=== PATIENT | female | born 1975 | race Caucasian/White ===

== ENCOUNTER → 2023-07-29 13:15 | Outpatient (REF) | payer OTHER, SELFPAY | LOC: CLAB 13:15 | PROVIDERS: ATTENDING PHYSICIAN Obstetrics & Gynecology Gynecology | DX: N84.0 Polyp of corpus uteri (principal); N92.4 Excessive bleeding in the premenopausal period | CPT/HCPCS: 88305 ==

== ENCOUNTER → 2023-08-24 09:43 | Outpatient (REF) | payer OTHER, SELFPAY | LOC: WDC 09:43 | PROVIDERS: ATTENDING PHYSICIAN Obstetrics & Gynecology Gynecology; FAMILY PHYSICIAN Physician Assistant Medical | DX: N63.10 Unspecified lump in the right breast, unspecified quadrant (principal); N63.31 Unspecified lump in axillary tail of the right breast | CPT/HCPCS: 76642; 77062; 77066 ==

== ENCOUNTER → 2023-12-26 07:59 | Outpatient (REF) | payer OTHER, SELFPAY | LOC: WDC 07:59 | PROVIDERS: ATTENDING PHYSICIAN Obstetrics & Gynecology Gynecology; FAMILY PHYSICIAN Physician Assistant Medical | DX: R92.2 Inconclusive mammogram (principal); Z80.3 Family history of malignant neoplasm of breast | CPT/HCPCS: 76641 ==

== ENCOUNTER → 2024-06-07 08:26 | Outpatient (REF) | payer OTHER, SELFPAY | LOC: WDC 08:26 | PROVIDERS: ATTENDING PHYSICIAN Obstetrics & Gynecology Gynecology; FAMILY PHYSICIAN Physician Assistant Medical | DX: R92.8 Other abnormal and inconclusive findings on diagnostic imaging of breast (principal) | CPT/HCPCS: 76642 ==

== ENCOUNTER 2024-09-25 04:33 | Observation (INO) | payer OTHER, SELFPAY ==
[2024-09-24 23:28] VITALS: BP 146/87
[2024-09-25 00:05] LABS: % Basophils 0.6 % (0-2); % Eosinophils 2.9 % (0-6); % Immature Granulocytes 0.3 % (0-0.5); % Lymphocytes 22.9 % (20.5-51.1); % Monocytes 8.7 % (1.7-9.3); % Neutrophils 64.6 % (42.2-75.2); Absolute Eosinophils 0.2 10^3/uL (0-0.7); Absolute Lymphocytes 1.7 10^3/uL (1.2-3.4); Absolute Monocytes 0.6 10^3/uL (0.1-0.6); Absolute Neutrophils 4.7 10^3/uL (1.4-6.5); HCG, Serum Qualitative Screen Negative; Hematocrit 38.8 % (37.0-47.0); Hemoglobin 13.8 g/dL (12.0-16.0); Mean Corp Hgb Conc. 35.6 g/dL (33.0-37.0); Mean Corpuscular Hgb 30.7 pg (27.0-31.0); Mean Corpuscular Volume 86.4 fL (81.0-99.0); Mean Platelet Volume 10.3 fL (7.4-10.4); Nucleated Red Blood Cells % 0 %; Platelet Count 185 10^3/uL (130-400); Red Blood Cell Count 4.49 10^6/uL (4.20-5.40); White Blood Cell Count 7.2 10^3/uL (4.8-10.8)
[2024-09-25 00:09] LABS: ALT (SGPT) 15 U/L (0-35); AST (SGOT) 20 U/L (14-36); Albumin 4.2 g/dl (3.5-5.0); Alkaline Phosphatase 72 U/L (38-126); Blood Urea Nitrogen 8 mg/dl (7-17); Calcium 9.5 mg/dl (8.4-10.2); Carbon Dioxide 20 mmol/L (22-30); Chloride 107 mmol/L (98-107); Glucose 119 mg/dl (70-99); Potassium 3.1 mmol/L (3.5-5.1); Sodium 137 mmol/L (135-145); Total Bilirubin 0.7 mg/dl (0.2-1.3); Total Protein 6.7 g/dl (6.3-8.2); eGFR > 60.00
[2024-09-25 00:20] LABS: Troponin I < 0.012 ng/ml
[2024-09-25 01:29] VITALS: BMI 25.3
[2024-09-25 02:17] LABS: D-Dimer 0.44 ug/mlFEU (0.00-0.50)
[2024-09-25 02:29] LABS: Troponin I 0.029 ng/ml
--- NOTE | 2024-09-25 03:21 | ED.GENMED ---
History of Present Illness
General
Chief Complaint: Anxiety
Source: patient
Exam Limitations: none
Time Seen by Provider: 09/25/24 01:30
Nursing documentation reviewed up to this point in time: agreed with
History of Present Illness
History of Present Illness:
This is a 49-year-old woman with history of hyperlipidemia, had been started on Crestor in June but discontinued this due to complaints of posterior neck pain that has been an ongoing issue for a few months. She admits that neck pain has not
improved with discontinuing Crestor and more recently over the past few weeks she has had intermittent left-sided chest pain accompanied with shortness of breath and feelings of anxiety. Chest pain episodes are worse with activity, accompanied with
shortness of breath and feeling somewhat panicked and generally occur perhaps twice a week over the past few weeks, worse tonight accompanied with circumoral paresthesia, tingling of her fingers and toes and carpopedal spasm.
She arrives via EMS. 324 mg chewable aspirin given prehospital.
Feeling improved with resolution of chest pain and shortness of breath, continues with intermittent anxiety.
No recent travel. Denies leg pain or swelling.
Past History
Past History
ED Past Medical History: Hypercholesterolemia
ED Past Surgical History: Gynecological
Social History
Tobacco: Non-smoker
Alcohol: None
Drug: None
Personal:
Living: with family
Employment: Employed (Pharmacist)
Family History
Family History: Cancer (Family history of breast cancer)
Phy Exam
Physical Exam
Physical Exam:
GENERAL: 49-year-old woman appears her stated age, awake and alert, mildly anxious, intermittently mildly hyperventilating. Multiple family members present.
EYE: anicteric
NECK: Supple, nontender, no meningismus, no significant adenopathy.
ENT: oral mucosa is moist. No rhinorrhea.
CARDIAC: Regular rate and rhythm. no murmur. No palpable chest wall tenderness.
LUNGS: Clear breath sounds bilaterally, no acute respiratory distress, no wheezes/rales/rhonchi
ABDOMEN: Soft, nondistended, without focal tenderness, no r/g, no cvat. normoactive BS.
NEUROLOGICAL: Alert and oriented x3, no focal neuro deficits.
SKIN: Warm and dry, normal color, skin intact. No rash.
MUSCULOSKELETAL: No C/C/E. peripheral pulses are full and equal b/l. No palpable tenderness.
PSYCH: Mildly anxious. Easily communicative.
Scores
Heart Score for Chest Pain Patients
STEMI patient?: No
History: Slightly or Non-Suspicious
ECG: Normal
Age: >45 - <65 years
Risk Factors: 1 or 2 Risk Factors
Troponin: >1 - <3 x Normal Limit
Heart Score for Chest Pain Patients: 3
Heart Score Risk: 2.5% MACE over next 6 weeks
Course
Orders/Labs/Results
Orders:
Orders
09/24/24 23:35
EKG [Electrocardiogram (*1)] Urgent
Reason for Study: Chest Pain
EKG- Treatment ONCE
09/24/24 23:36
Test Result ONCE
09/24/24 23:47
Complete Blood Count/With Diff Urgent
Comprehensive Metabolic Panel Urgent
HCG, Serum Qualitative Screen Urgent
Troponin I Urgent
09/25/24 01:47
Lorazepam [Ativan] 0.5 mg IV NOW STA
09/25/24 01:59
D-Dimer Urgent
Troponin I Urgent
09/25/24 03:06
CR Chest - 2 Views Urgent
Comment:
Reason For Exam: intmittent CP with SOB
09/25/24 04:13
Lorazepam [Ativan] 0.5 mg PO NOW STA
09/25/24 04:16
Potassium Chloride [KCl] 40 meq PO NOW STA
09/25/24 04:22
Admit/Transfer Patient As Directed
Co-Sign Provider:
Level of Care: Observation services
Assign to:: Telemetry
Physician / Group: hospitalist
Diagnosis: atypical chest pain
Reason for Telemetry: Chest Pain syndromes
Date to Stop Telemetry: 09/27/24
Time to Stop Telemetry: 11:00
PRN Pain Medication Management As Directed
May give lesser potent ordered pain med per pt: Yes
preference::
Protocol:: Medication orders for pain may be administered in a
manner that supports deferring to patient preference
when the pt is:
- Requesting an ordered lesser potent pain medication.
Least to most potent pain medications are defined
as: acetaminophen < NSAID < tramadol < opioids
(morphine, oxycodone, hydromorphone).
- Requesting a lesser dose of the same medication IF
ORDERED.
- Requesting a less intrusive route of administration
if both routes are prescribed by the provider (PO <
IV).
09/25/24 04:23
Code Status As Directed
Resuscitation Status: Full Code
09/27/24 11:00
DC Protocol for Telemetry ONCE
Abnormal Lab Results
09/24/24
23:47
Potassium 3.1 L mmol/L
(3.5-5.1)
Carbon Dioxide 20 L mmol/L
(22-30)
Glucose 119 H mg/dl
(70-99)
09/24/24 23:47
09/24/24 23:47
Vital Signs
Initial and Last Documented VS:
Initial Vital Signs
Temp Pulse Resp BP Pulse Ox
97.7 F 91 18 146/87 100
09/24/24 23:28 09/24/24 23:28 09/24/24 23:28 09/24/24 23:28 09/24/24 23:28
Last Documented Vital Signs
Temp Pulse Resp BP Pulse Ox
97.7 F 66 13 137/83 100
09/24/24 23:28 09/25/24 04:00 09/25/24 04:00 09/25/24 03:23 09/25/24 04:00
MDM/Problems Addressed
Differential Diagnosis Includes:
Concern for hyperventilation syndrome, ACS, musculoskeletal chest wall pain, GERD, pleurisy, less likely PE, pneumonia.
Thus far labs are unremarkable. Troponin is negative.
EKG is unremarkable.
Will check D-dimer and plan to repeat troponin.
Patient initially appears comfortable but with discussion of plan of care, discussion of further laboratory studies, D-dimer she becomes anxious, mildly hyperventilating thus will give an IV dose of Ativan.
*Radiology
Radiology exam reviewed: preliminary read by ED provider (Chest x-ray is unremarkable. Unchanged from previous.)
*Pulse Oximetry
Patient hypoxic: no
*EKG
Interpreted by ED Provider?: Yes
Interpretation: normal
Comparison EKG: no comparison EKG present
Rate: normal
Rhythm: sinus
Fraziers Bottom: normal axis
Interval: normal interval
QRS Pattern: normal QRS
Ischemia: no ischemia
*Director Of Regional Sales Interpretation
Rate: normal
Interpretation: normal
Rhythm: sinus
*Critical Care Note
Total Time (30-74mins, 75-104mins- exclusive of procedures): Not Applicable
Update Note
Update Note:
03:30
Patient resting comfortably after Ativan.
No further chest pain or shortness of breath.
D-dimer is normal.
Troponin has trended up from < 0.012 to 0.029
As troponin has more than doubled, will continue to observe, plan to repeat troponin and will admit to hospital service. Plan for cardiology consult.
ED Attending Note
-
Portions of this chart may have been created with voice recognition software.� Occasional wrong word or��sound alike� substitutions may have occurred due to the inherent limitations of voice recognition software.
Discharge Plan
Departure
Patient Disposition: Admit
Date of Disposition: 09/25/24
Time of Disposition: 03:30
Admit to: Telemetry
Admit to doctor: Nichelle
Presentation/result/management discussed w/ accepting MD/DO: Hospitalist
Discharge Problem:
chest pain r/o ACS
Interventions
Interventions:
*Risk Screen - Suicide Last Done: 09/24/24 23:28
*General Assessment Last Done: 09/24/24 23:28
*Neglect/Abuse Screening Last Done: 09/24/24 23:28
*ED COVID-19 Vaccine History Last Done: 09/24/24 23:28
ED-Psychological Assessment Last Done: 09/25/24 01:29
[2024-09-25 03:23] VITALS: BP 137/83
--- NOTE | 2024-09-25 04:14 | HPS.HSE ---
Family Physician
-
Family Physician: [place]
Chief Complaint
-
Chest pain
History of Present Illness
This is a 49-year-old female with past medical history of iron deficiency anemia presented to the emergency department with about 2-week history of chest pain.
Patient reports intermittent episodes of left-sided chest pain just below her clavicle that lasted few minutes and then resolves only to come back hours later. She says did not particularly associated with any activity. She feels that when she
gets these episodes she feels some shortness of breath as though she cannot take a deep breath. She reports that this episode usually begin with a slight irritation and then she develops heart palpitations. She says when she gets the symptoms
states often associated with tingling in her fingertips as well as tremors in her hands.
Patient reports that she has had a history of anxiety and panic episodes in the past and she says that she feels that she has been having them more frequently over the last few weeks. She has a family history that is positive for CAD in the mother
who had an WI at the age of around 65. No other known family history. She denies any prior cardiac testing. She reports history of for hyperlipidemia for which she was taking rosuvastatin and then she stopped due to intermittent headaches. She
denies any history of hypertension. She denies any history of diabetes.
In the emergency department she was afebrile, blood pressure was 140/80 with a pulse of 80 and she was satting 100% on room air. Initial troponin was 0.012 ECG shows a normal sinus rhythm at a rate of [address] or T wave changes. CBC was
completely normal. Electrolytes notable for a potassium of 3.1 but otherwise unremarkable.
Chest x-ray was clear.
Medical History
Past Medical History
Past Medical History: Reports Hypercholesterolemia and Other (Anemia)
Past Surgical History: Reports None
Social History
Tobacco: Non-smoker
Alcohol: Occasional
Drug: None
Living: With Family
Family History
Family History: Not pertinent
Allergies / Home Medications
Allergies reflects when Allergies were last updated in [facility] [employer].
Home Medications with original date entered in [facility] [facility]
Allergy/Medication List:
Allergies
Allergy/AdvReac Type Severity Reaction Status Date / Time
tetracaine [From Altacaine] Allergy Mild Shortness Verified 09/24/24 23:28
of Breath
Home Medications
No Meds [No Current Medications] 09/25/24
Review of Systems
-
History Source: Patient
Constitutional: Reports No Symptoms
EENT: Reports No Symptoms
Respiratory: Reports No Symptoms
Cardiac: Reports Chest Pain and Palpitations
Abdomen/GI: Reports No Symptoms
: Reports No Symptoms
Musculoskeletal: Reports No Symptoms
Skin: Reports No Symptoms
Neurological: Reports No Symptoms
Endocrine: Reports No Symptoms
Hematologic/Lymphatic: Reports No Symptoms
Psych: Reports No Symptoms
Physical Exam
Vital Signs
Vital Signs
Temp Pulse Resp BP Pulse Ox
97.7 F 66 13 137/83 100
09/24/24 23:28 09/25/24 04:00 09/25/24 04:00 09/25/24 03:23 09/25/24 04:00
Physical Exam
General: Well Developed, Well Nourished, No Apparent Distress and Comfortable
HEENT: NormoCephalic, Anicteric, Moist mucous membranes and Atraumatic
Respiratory: Clear
Cardiac: S1/S2 and Regular Rhythm
Breast: Deferred by me
GI: Soft, Non Tender, Non Distended and Normal Bowel Sounds
Rectal: Deferred by Provider
Genito-urinary: Deferred by me
Musculoskeletal: No Clubbing, No Cyanosis and No Edema
Skin: Warm
Neuro: AO x 3
Hematologic/Lymphatic: No Lymphadenopathy
Psych: Anxious
Laboratory Results
-
09/24/24 23:47
09/24/24 23:47
Laboratory Results
Total Bilirubin 0.7 mg/dl (0.2-1.3) 09/24/24 23:47
AST 20 U/L (14-36) 09/24/24 23:47
ALT 15 U/L (0-35) 09/24/24 23:47
Alkaline Phosphatase 72 U/L (38-126) 09/24/24 23:47
Troponin I 0.029 ng/ml D 09/25/24 01:59
Data Reviewed
-
Diagnostic Radiology: Image Personally Visualized and interpreted
Medical Tests (Nuc Med, Echo, EKG etc): Image Personally Visualized and interpreted
Lab Data: Labs Reviewed by me
Old Records: Reviewed
Impression/Plan
-
IMPRESSION:
49-year-old with past medical history significant for anemia status post treatment, hyperlipidemia not currently treated, anxiety and a family history of CAD in mother and 60s presents to the emergency department with 2 weeks of intermittent chest
discomfort lasting about 2 to 3 minutes before resolving and associated with some shortness of breath bilateral finger tingling and hand tremors. While I was with the patient she was having such episode. She describes it as anxiety and a panic
episode. She does appear to be having episodic anxiety attacks. She seems to have anxiety with taking medications. Family members are known to help calm her down.
PLAN:
Atypical chest pain -suspect anxiety episode, ECG is nonischemic, initial troponin was negative. There was a change on repeat troponin from 0.012-0.029 and she has a positive family history which merits a rule out WI.
-Admit to telemetry observation
-Repeat troponin in 3 hours
-If troponin negative patient does not need further inpatient evaluation, she can get outpatient stress test
-Check lipid panel with repeat troponin, check A1c
-Start lorazepam as needed for panic attacks
-Consider outpatient SSRI for generalized anxiety disorder
DVT prophylaxis with SCDs for now
CODE STATUS-Full code
[2024-09-25] MEDS: ATIVAN 0.5 MG PO (04:34)
[2024-09-25] MEDS: KCL 40 MEQ PO (04:34)
[2024-09-25 06:00] VITALS: BMI 24.5
[2024-09-25 07:16] LABS: Blood Urea Nitrogen 7 mg/dl (7-17); Carbon Dioxide 21 mmol/L (22-30); Chloride 112 mmol/L (98-107); Estimated Creatinine Clearance 98 ml/min; Glucose 120 mg/dl (70-99); Magnesium 2.1 mg/dl (1.6-2.3); Potassium 4.3 mmol/L (3.5-5.1); Sodium 141 mmol/L (135-145); eGFR > 60.00
[2024-09-25 07:44] VITALS: BP 123/75
[2024-09-25 07:45] VITALS: BP 123/75
[2024-09-25 08:16] LABS: HDL Cholesterol 61 mg/dl; LDL Cholesterol, Calculated 177 mg/dl; Total Cholesterol 268 mg/dl (50-199); Triglyceride 154 mg/dl (10-149); Very Low Density Lipoprotein 30 mg/dl (0-30)
[2024-09-25 08:28] LABS: Troponin I 0.017 ng/ml
[2024-09-25 09:44] LABS: Glycohemoglobin (HgbA1c) 5.2 % (4.0-5.6)
[2024-09-25 10:03] VITALS: BP 165/103
--- NOTE | 2024-09-25 11:09 | CM ---
CM met with pt bedside
Pt resides with her son 16 y/o and spouse in a 2SH with 0STE through garage
Full flight to 2nd floor
Pt is indep with her ADLs, denies use of DMEs
PCP- [place]
Rx- [facility] [address] [facility] [facility] [address]
Pt is OBS- OBS form completed
Copy provided to pt and add'l copy placed on ED chart
Discharge Disposition- home, no needs anticipated, plans to drive self home
--- NOTE | 2024-09-25 11:12 | CON.CAR ---
Addendum entered and electronically signed by Xu Dalton MD 09/25/24 14:35:
I saw and examined the patient.
The BLOOD BANK LABORATORY TECHNICIAN's note was reviewed and I agree with the note.
Comment: 49 yo female who is a former smoker quitting last year and has a family history of premature CAD in her mother (WA in early 60s) presents with cp that has no pattern, is stabbing at times and pressure at times. No plueritic nature, not
positional, is not brought on by exercising on the treadmill. Labs not troponin inconsistent with WA. ECG NSR. Exam is normal. Echo was done without any acute abnormality. At this point differential still includes GI, somatic, anxiety and least
likely CAD. OK to send home and our office will call to schedule ETT. If normal f/w with pcp. Otherwise as below.
Original Note:
Consultation
Consultation Request
Date/Time Consultation Requested: 09/25/2024 10:00
Date/Time Consultation Performed: 09/25/2024 11:10
Requesting Provider: Dr. Powell
Performing Provider: KATALINA Garcia for Dr. Dalton
Reason for Consultation: Atypical chest pain
Medical History
-
Chief Complaint: Chest pain
History of Present Illness:
Yennifer Peck is a 49-year-old female with hypercholesterolemia and iron deficiency anemia who presented to the emergency department with a chief complaint of chest pain. Her chest pain started at least 2 weeks ago. It comes and goes. It can
happen at rest or at exertion. She describes it as a mild intensity discomfort in her left anterior chest. Sometimes it is stabbing and sometimes it is heaviness. It will spontaneously resolve within minutes. She endorses no association of
nausea, vomiting, dizziness, nor diaphoresis. She has been just trying to sit down and relax when it occurs. When it is happening she feels like she cannot take a deep breath. She reports that these situations with chest pain are occurring more
frequently than they did 2 weeks ago. She is unsure if it is anxiety or panic attacks. She has had several troponins drawn in the last 12 hours, highest 0.029. Her EKG is stable. Her mother had an WA in her 60s. She is not currently having any
shortness of breath or chest pain. She has also been experiencing worsening posterior headaches. She initially plan a saw her PCP about them today.
Past Medical History
Past Medical History: Hypercholesterolemia and Other (AI)
Past Surgical History: Gynecological
Social History
Tobacco: Non-Smoker
Personal:
Living: With Family
Employment: Employed (Pharmacist)
Family History
Family History: CAD (Mother with WA at age 65)
Allergies / Home Medications
Allergy/AdvReac Type Severity Reaction Status Date / Time
tetracaine [From Altacaine] Allergy Mild Shortness Verified 09/24/24 23:28
of Breath
�Medication �Instructions �Recorded �Confirmed �Type
ferrous sulfate 325 mg (65 mg 325 mg PO HS 09/25/24 09/25/24 History
iron) tablet
Review of Systems
-
History Source: Patient
All other systems: Negative unless noted
Constitutional: No Symptoms
EENT: No Symptoms
Respiratory: No Symptoms
Cardiac: No Symptoms
Abdomen/GI: No Symptoms
: No Symptoms
Musculoskeletal: No Symptoms
Skin: No Symptoms
Neurological: No Symptoms
Endocrine: No Symptoms
Hematologic/Lymphatic: No Symptoms
Physical Exam
Vital Signs
Temp Pulse Resp BP Pulse Ox
98.5 F 86 20 123/75 98
09/25/24 07:45 09/25/24 07:45 09/25/24 07:45 09/25/24 07:45 09/25/24 07:45
Lab Results
09/24/24 23:47
09/25/24 06:47
Troponin I 0.017 ng/ml D 09/25/24 07:51
Impression / Plan
-
I/P: 49F with hypercholesterolemia and iron deficiency anemia who presented to the emergency department with a chief complaint of chest pain.
Chest pain
-Atypical with random episodes that are non exertional
-Peak troponin 0.029
-EKG stable
-Echocardiogram today
Dyslipidemia
-TC 268, LDL 177, HDL 61, TG 154
-She was given rosuvastatin in June but discontinued it due to neck pain & headache, this did not improve with discontinuation of rosuvastatin
FH CAD, mother with WA in her 60s
AI, blood count stable, on iron supplementation
Data Reviewed
-
EKG: Report Reviewed by me
Radiology: Report Reviewed by me
Labs: Labs Reviewed by me
[2024-09-25 11:49] VITALS: BP 132/88
[2024-09-25 12:00] LABS: Troponin I 0.014 ng/ml
--- NOTE | 2024-09-25 15:08 | W.PN.HOSP.TC ---
Today's Communication/Plan
-
Discharge home today
Assessment / Plan
Assessment / Plan
Assessment/plan
Atypical chest pain -suspect anxiety episode, ECG is nonischemic, initial troponin was negative. There was a change on repeat troponin from 0.012-0.029 and she has a positive family history which merits a rule out CA.
-Admit to telemetry observation
-Repeat troponin in 3 hours
-If troponin negative patient does not need further inpatient evaluation, she can get outpatient stress test
-Check lipid panel with repeat troponin, check A1c
-Start lorazepam as needed for panic attacks
-Consider outpatient SSRI for generalized anxiety disorder
09/25
Seen by cardiology.
Echocardiogram done came back shows:
Normal biventricular size and systolic function without regional wall motion
abnormality.
No significant valvular disease.
No prior study available for comparison.
Started Vistaril.
Discharge home today and follow-up as outpatient with cardio
Hypercholesterolemia.
Advised to resume Crestor
CODE STATUS: Full code
DVT prophylaxis:SCD
Diet: Regular diet
Total time spent on today's encounter was 40 minutes which included time spent in counseling the patient/family regarding diagnosis and treatment plan as listed above, goals of care, and symptom management. Case was discussed with nursing staff,
specialists, and care coordinators/case management. All labs and imaging personally reviewed by me. Remainder the time spent in detailed review of previous records, lab data, imaging, and other medical provider documentation.
Anticipated Discharge: Today
Subjective/Interval History
-
Date of Service: September 25, 2024
Patient seen and examined at bedside, denies any chest pain or shortness of breath, no abdominal pain, no nausea, no vomiting, no diarrhea or constipation.
Seen by cardiology and echocardiogram came back unremarkable, will be discharged home.
Objective Data
-
Labs:
Laboratory Results
09/25/24
06:47
Sodium 141
Potassium 4.3 D
Chloride 112 H
Carbon Dioxide 21 L
BUN 7
Creatinine 0.5 L
Glucose 120 H
Calcium 9.0
Vital Signs:
Vital Signs
Temp Pulse Resp BP Pulse Ox
98.3 F 79 16 132/88 100
09/25/24 11:49 09/25/24 11:49 09/25/24 11:49 09/25/24 11:49 09/25/24 11:49
Physical Exam
-
General: Well Developed, Well Nourished, No Apparent Distress and Comfortable
HEENT: Normocephalic, Atraumatic, Moist Mucous Membranes, No Ptosis, PERRLA and Nose Appears Normal
Respiratory: Clear to Auscultation and Non Labored Respirations
Cardiac: Regular Rhythm and S1/S2
Breast: Deferred by me
GI: Soft, Nontender, Nondistended and Normal Bowel Sounds
Genito-urinary: No Costovertebral Tender
Musculoskeletal: No Clubbing, No Cyanosis and No Edema
Skin: Warm
Neuro: Awake, Alert, Oriented, AO x 3 and No Motor Deficits
Psych: Calm
Data Reviewed
-
Diagnostic Radiology: Image personally visualized and interpreted and Report Reviewed by me
CT Scan: Image personally visualized and interpreted and Report Reviewed by me
Ultrasound: Image personally visualized and interpreted and Report Reviewed by me
MRI: Image personally visualized and interpreted and Report Reviewed by me
Medical Tests (Nuc Med, Echo etc): Image personally visualized and interpreted and Report Reviewed by me
Labs: Labs Reviewed by me
Old Records: Reviewed
[2024-09-25 15:09] VITALS: BP 107/69
--- NOTE | 2024-09-25 15:11 | W.DCSUMMARY ---
Discharge Summary
Discharge Data
Date of Admission: 09/25/24
Date of Discharge: 09/25/24
-
Pending Results: No
Hospital Course
Impression.
Patient admitted to the hospital with atypical chest pain after what seems to be panic attack, negative troponin and no acute EKG changes.
Echocardiogram showed:
Normal biventricular size and systolic function without regional wall motion
abnormality.
No significant valvular disease.
No prior study available for comparison.
Seen by cardiology recommended outpatient follow-up for possible stress test.
Patient started on Vistaril.
Lipid panel came back elevated and advised to resume Crestor.
Assessment/plan:
Assessment/plan
Atypical chest pain -suspect anxiety episode, ECG is nonischemic, initial troponin was negative. There was a change on repeat troponin from 0.012-0.029 and she has a positive family history which merits a rule out NC.
-Admit to telemetry observation
-Repeat troponin in 3 hours
-If troponin negative patient does not need further inpatient evaluation, she can get outpatient stress test
-Check lipid panel with repeat troponin, check A1c
-Start lorazepam as needed for panic attacks
-Consider outpatient SSRI for generalized anxiety disorder
09/25
Seen by cardiology.
Echocardiogram done came back shows:
Normal biventricular size and systolic function without regional wall motion
abnormality.
No significant valvular disease.
No prior study available for comparison.
Started Vistaril.
Discharge home today and follow-up as outpatient with cardio
Hypercholesterolemia.
Advised to resume Crestor
CODE STATUS: Full code
DVT prophylaxis:SCD
Diet: Regular diet
Discharge Plan
-
Patient Disposition: Home (Routine Discharge)
Discharge Diagnosis/Procedures: Atypical chest pain/panic attack
Condition: Good
Diet: No restrictions
Activity: No restrictions
Driving Restrictions: As prior to admission
Referrals:
[place] [Family Provider] -
Xu Dalton MD [Active] - in two to three weeks
Additional Discharge Medication Instructions: Please resume Crestor
Prescriptions:
New
hydroxyzine pamoate 25 mg capsule
25 mg PO QID PRN (Reason: Anxiety) Qty: 120 0RF
Continued
ferrous sulfate 325 mg (65 mg iron) Tablet
325 mg PO HS
Discharge Orders:
Discharge Patient (As Directed); Ordered 09/25/24
Ordered By: Salena Powell
Discharge Date and Time
Print Language: FINNISH
== END 2024-09-25 16:30 | disposition home or self-care (01) ==
LOC: 1 ACUTE 04:33
PROVIDERS: ADMITTING PHYSICIAN Internal Medicine; ATTENDING PHYSICIAN General Practice; CONSULT PHYSICIAN Internal Medicine Cardiovascular Disease; EMERGENCY PHYSICIAN Emergency Medicine; FAMILY PHYSICIAN Physician Assistant Medical
DX: F41.0 Panic disorder [episodic paroxysmal anxiety] (principal); F41.9 Anxiety disorder, unspecified; R07.89 Other chest pain; E78.00 Pure hypercholesterolemia, unspecified
CPT/HCPCS: 71046; 80048; 80053; 80061; 83036; 83735; 84484; 84703; 85025; 85379; 93005; 93306; 99285; G0378

== ENCOUNTER → 2024-10-01 09:12 | Outpatient (REF) | payer OTHER, SELFPAY | LOC: RCS 09:12 | PROVIDERS: ATTENDING PHYSICIAN Internal Medicine Cardiovascular Disease; FAMILY PHYSICIAN Physician Assistant Medical | DX: R07.9 Chest pain, unspecified (principal); Z82.49 Family history of ischemic heart disease and other diseases of the circulatory system | CPT/HCPCS: 93017 ==

== ENCOUNTER → 2025-01-01 10:02 | Outpatient (REF) | payer OTHER, SELFPAY | LOC: WDC 10:02 | PROVIDERS: ATTENDING PHYSICIAN Obstetrics & Gynecology Gynecology; FAMILY PHYSICIAN Physician Assistant Medical | DX: R92.30 Dense breasts, unspecified (principal); Z80.3 Family history of malignant neoplasm of breast | CPT/HCPCS: 76641 ==

== ENCOUNTER → 2025-02-14 09:42 | Outpatient (REF) | payer OTHER, SELFPAY | LOC: RAD 09:42 | PROVIDERS: ATTENDING PHYSICIAN Physician Assistant Medical | DX: M54.2 Cervicalgia (principal) | CPT/HCPCS: 72052; 72072 ==

== ENCOUNTER 2025-03-26 06:18 | Outpatient (RCR) | payer OTHER, SELFPAY | END 2025-03-26 23:59 | disposition home or self-care (01) | LOC: RPT 06:18 | PROVIDERS: ATTENDING PHYSICIAN Physician Assistant Medical | DX: M54.12 Radiculopathy, cervical region (principal); Z73.6 Limitation of activities due to disability; M62.81 Muscle weakness (generalized) | CPT/HCPCS: 97010; 97110; 97112; 97140; 97162; 97535 ==

== ENCOUNTER 2025-04-03 09:32 | Outpatient (RCR) | payer OTHER, SELFPAY | END 2025-04-03 23:59 | disposition home or self-care (01) | LOC: RPT 09:32 | PROVIDERS: ATTENDING PHYSICIAN Physician Assistant Medical | DX: M54.12 Radiculopathy, cervical region (principal); Z73.6 Limitation of activities due to disability; M62.81 Muscle weakness (generalized) | CPT/HCPCS: 97010; 97112; 97140; 97535 ==